=== PATIENT | female | born 1990 | race Caucasian/White ===

== ENCOUNTER 2021-05-09 12:35 | Emergency (ER) | payer SELFPAY ==
[~2021-05-09] VITALS: Ht 160 cm; Wt 49.9 kg
[2021-05-09 12:36] VITALS: BP 103/54
--- NOTE | 2021-05-09 12:38 | NUR ---
PT SENT TO [facility] TO WAIT FOR MSE OR AVAILABLE BED.
--- NOTE | 2021-05-09 12:45 | NUR ---
PATIENT LEFT WITHOUT BEING SEEN BY DR. COLEMAN. NO FURTHER CARE PROVIDED FOR PATIENT.
== END 2021-05-09 12:45 | disposition left against medical advice (07) ==
LOC: MED 12:35
DX: R41.82 Altered mental status, unspecified (principal); Z53.21 Procedure and treatment not carried out due to patient leaving prior to being seen by health care provider